=== PATIENT | female | born 1985 | race Caucasian/White ===

== ENCOUNTER 2018-10-16 14:54 | Emergency (ER) | payer OTHER ==
[~2018-10-16] VITALS: Ht 160 cm; Wt 82.6 kg
[~2018-10-16 14:54] MED LIST: IRON18TA PO; PREN1TAB49 PO
[2018-10-16 15:18] VITALS: Ht 160 cm; Wt 82.6 kg
[2018-10-16] MEDS ORDERED: CEPH-443 PO (18:05)
[2018-10-16] MEDS ORDERED: IBUP-1542 PO (18:05)
--- NOTE | 2018-10-16 18:17 | ERD ---
ER Documentation Chief Complaint Chief Complaint r side of face swelling - pt not in resp distress HPI 33-year-old female presents with right facial pain and swelling since yesterday. She may have a tactile fever at home. She has a history of a poor dentition and was told she needs a root canal tooth in the area of swelling. She denies any shortness of breath, difficulty swallowing, vomiting, chest pain. ROS All systems reviewed and are negative except as per history of present illness. Medications Home Meds Active Scripts Cephalexin* (Keflex*) 500 Mg Capsule, 500 MG PO QID for 10 Days, CAP Prov:KILEY KEYS MD 10/16/18 Ibuprofen* (Motrin*) 600 Mg Tab, 600 MG PO Q6, #20 TAB Prov:KILEY KEYS MD 10/16/18 Reported Medications Iron (Iron) 18 Mg Tablet, 18 MG PO BID 12/02/11 Vits W-Ca,Fe,Fa(<1MG) () 1 Tab Tablet, 1 TAB PO DAILY 12/02/11 Allergies Allergies: Coded Allergies: No Known Allergies (Verified Allergy, 12/02/11) PMhx/Soc History of Surgery: Yes (C/S, TUBAL LIGATION 2012) Anesthesia Reaction: No Hx Neurological Disorder: No Hx Respiratory Disorders: No Hx Cardiac Disorders: No Hx Psychiatric Problems: No Hx Miscellaneous Medical Probl: No Hx Alcohol Use: No Hx Substance Use: No Hx Tobacco Use: No Smoking Status: Never smoker FmHx Family History: No diabetes, No coronary disease, No other Physical Exam Vitals Vital Signs Date Temp Pulse Resp B/P (MAP) Pulse Ox O2 O2 Flow FiO2 Time Delivery Rate 10/16/18 99.4 83 18 116/69 99 Room Air 18:33 (85) 10/16/18 98.2 99 20 121/65 100 15:18 (83) Physical Exam Const: No acute distress Head: Atraumatic Eyes: Normal Conjunctiva ENT: Normal External Ears, Nose and Mouth. Right upper dental area with tenderness and erythema at the base of a carious tooth. No significant facial induration. Is mild facial swelling. Airway is patent. Neck: Full range of motion. No meningismus. Resp: Clear to auscultation bilaterally Cardio: Regular rate and rhythm, no murmurs Abd: Soft, non tender, non distended. Normal bowel sounds Skin: No petechiae or rashes Back: No midline or flank tenderness Ext: No cyanosis, or edema Neur: Awake and alert Psych: Normal Mood and Affect Results 24 hrs Current Medications Medications Dose Sig/Asim Start Time Status Last (Trade) Ordered Route PRN Stop Time Admin Dose Reason Admin Ceftriaxone 1 gm ONCE ONCE 10/16/18 DC 10/16/18 Sodium IM 18:30 18:08 (Rocephin) 10/16/18 18:31 Lidocaine 20 ml ONCE ONCE 10/16/18 DC 10/16/18 (Xylocaine SC 18:30 18:08 1% (Mdv) 20 10/16/18 18:31 ml) Ibuprofen 600 mg ONCE ONCE 10/16/18 DC 10/16/18 (Motrin) PO 18:30 18:08 10/16/18 18:31 Procedures/MDM Patient presents with signs and symptoms of early right dental abscess without signs of facial cellulitis, airway obstruction, sepsis. She will be treated with Rocephin 1 g here, Keflex, ibuprofen, primary care follow-up and return precautions. Patient will be referred to local dentist although she may need authorization with primary doctor or other resources depending on her insurance. The patient was stable with no new complaints during the ER course. Clinically, there is no current evidence to suggest meningitis, sepsis, acute abdomen, pneumonia, stroke, acute coronary syndrome, pulmonary embolism, aortic dissection or any other emergent condition appearing to require further evaluation or hospitalization. Patient counseled regarding my diagnostic impres dimitris and care plan. Prior to discharge all questions answered. Pt agrees with treatment plan and understands strict return precautions. Pt is instructed to follow up with primary care provider within 24-48 hours. Precautionary instructions provided including instructions to return to the ER if not improving or for any worsening or changing symptoms or concerns. Departure Diagnosis: Primary Impression: Dental abscess Condition: Stable Patient Instructions: Dental Abscess Referrals: [facility] ([facility]) Additional Instructions: Warm compresses at home. Recheck with dentist for further evaluation and treatment. Recheck for fevers, vomiting, difficulty breathing, new worsening symptoms. KILEY KEYS MD Oct 16, 2018 18:17
[2018-10-16] MEDS ORDERED: IBUPROFEN 600 MG TAB PO ONE (18:30)
[2018-10-16] MEDS ORDERED: LIDOCAINE 1% (MDV) 20 ML INJ SC ONE (18:30)
[2018-10-16] MEDS ORDERED: CEFTRIAXONE 1 GM INJ IM ONE (18:30)
[2018-10-16 18:33] VITALS: BP 116/69; PULSE 83; RESP 18
== END 2018-10-16 18:35 | disposition home or self-care (01) ==
LOC: FTE 14:54
DX: K04.7 Periapical abscess without sinus (principal)
CPT/HCPCS: 96372; J0696; Z7502; Z7610